=== PATIENT | female | born 1985 | race Caucasian/White ===

== ENCOUNTER 2016-12-19 15:56 | Emergency (ER) | payer MEDICAID ==
[2016-12-19] MEDS ORDERED: TYLENOL PO ONE ×2 (16:41→23:18)
[2016-12-19 19:00] LABS: Hematocrit 36.2 % (30.3-42.9); Hemoglobin 11.8 gm/dl (10.1-14.3); Mean Corpuscular HGB Conc 33 % (30-34); Mean Corpuscular Volume 77 fl (79-97); Platelet Count 232 K/mm3 (140-440); Red Blood Count 4.72 M/mm3 (3.65-5.03); Red Cell Distribution Width 14.1 % (13.2-15.2); White Blood Count 15.4 K/mm3 (4.5-11.0)
[2016-12-19 19:06] LABS: Mean Corpuscular Hemoglobin 25 pg (28-32)
[2016-12-19 19:17] LABS: Anion Gap 22 mmol/L; Blood Urea Nitrogen 8 mg/dL (7-17); Calcium 8.3 mg/dL (8.4-10.2); Carbon Dioxide 19 mmol/L (22-30); Chloride 93.4 mmol/L (98-107); Glucose 118 mg/dL (65-100); Potassium 3.7 mmol/L (3.6-5.0); Sodium 131 mmol/L (137-145)
[2016-12-19 19:44] LABS: Bacteria,Urine 2+ /HPF (Negative); Bilirubin,Urine NEG (Negative); Blood,Urine MOD (Negative); Ketones,Urine TR mg/dL (Negative); Leukocyte Esterase,Urine LG (Negative); Nitrite,Urine NEG (Negative); Protein,Urine <15 mg/dL mg/dL (Negative); Urobilinogen,Urine < 2.0 mg/dL (<2.0)
--- NOTE | 2016-12-19 22:50 | Emergency Department Report ---
HPI - General Chief Complaint: Upper Respiratory Infection Time Seen by Provider: 12/19/16 22:42 - HPI HPI: Patient is 31-year-old female at 29 weeks gestation who presents to ED complaining of fever and congestion times 4-5 days. Patient states she is generalized bodyaches and fever for the past couple of days. Patient admits to coughing and congestion and sinus pressure. Patient admits good movement and denies vaginal bleeding, vaginal leaking. Patient admitted frequent urination. She denies nausea/vomiting/abdominal pain/shortness of breath/dizziness/blurred vision ED Past Medical Hx - Past Medical History Previous Medical History?: No Additional medical history: 2vaginal births - Surgical History Past Surgical History?: No - Social History Smoking Status: Never Smoker Substance Use Type: None - Medications Home Medications: Home Medications Medication Instructions Recorded Confirmed Last Taken Type Acetaminophen [Acetaminophen ER 650 mg PO Q8HR PRN #30 tablet.er 12/19/16 Unknown Rx TAB] Amoxicillin/K Clav Tab [Augmentin 1 tab PO Q12HR #14 tab 12/19/16 Unknown Rx 875 mg] guaiFENesin [Robitussin] 200 mg PO Q6HR #20 tablet 12/19/16 Unknown Rx ED Review of Systems ROS: Stated complaint: BODY PAIN Other details as noted in HPI Constitutional: denies: chills, fever Eyes: denies: eye pain, eye discharge, vision change ENT: congestion. denies: ear pain, throat pain, dental pain, hearing loss, epistaxis Respiratory: cough. denies: shortness of breath, wheezing Cardiovascular: denies: chest pain, palpitations Endocrine: no symptoms reported Gastrointestinal: denies: abdominal pain, nausea, vomiting, diarrhea, constipation, melena Genitourinary: frequency. denies: urgency, dysuria, hematuria, discharge, abnormal menses Musculoskeletal: denies: back pain, joint swelling, arthralgia Skin: denies: rash, lesions Neurological: denies: headache, weakness, numbness, paresthesias, confusion, abnormal gait Psychiatric: denies: anxiety, depression Hematological/Lymphatic: denies: easy bleeding, easy bruising Physical Exam - Physical Exam Vital Signs: Vital Signs 12/19/16 12/19/16 16:33 17:11 Temperature 102.1 F H Pulse Rate 122 H Respiratory 20 18 Rate Blood Pressure 109/74 O2 Sat by Pulse 122 H Oximetry Physical Exam: GENERAL: Alert and oriented x3, no apparent distress, Normal Gait, atraumatic. HEAD: Head is normocephalic and a-traumatic. EYES: Extra ocular muscles are intact. Pupils are equal, round, and reactive to light and accommodation. EARS: symetrical, atraumatic, non tender, ear canal clear and moderate cerumen, tympanic membrance non inflamed. gross auditory nml bilaterally. NOSE: Nose symetrical, Nontender,Nares appeared normal. Tenderness to palpation of the maxillary sinuses MOUTH:Mouth is well hydrated and without lesions. Tonsils nonerythematous or swollen, Uvula midline, Tongue not elevated. Mucous membranes are moist. Posterior pharynx clear, no exudate or lesions. Patent airways. NECK: Supple. Non edematous, No carotid bruits. No lymphadenopathy or thyromegaly. LUNGS: Symetrical with respiration, No wheezing, no rales or crackles, CTAB. HEART: S1, S2 present, regular rate and rhythm without murmur, no rubs, no gallops. ABDOMEN: Gravid uterus noted,Positive bowel sounds, soft, and non-distended. . Nontender to palpation on all Quadrants, NO CVA tenderness. EXTREMITIES/MUSCULOSKELETAL: No cyanosis, clubbing, rash, lesions or edema. Full ROM bilaterally. UE/LE Pulses 2+ bilaterally. NEUROLOGIC: No focal Deficit, Cranial nerves II through XII are grossly intact. No loss of sensation, SKIN: Warm and dry, No lesions, No ulceration or induration present. ED Course Vital Signs 12/19/16 12/19/16 16:33 17:11 Temperature 102.1 F H Pulse Rate 122 H Respiratory 20 18 Rate Blood Pressure 109/74 O2 Sat by Pulse 122 H Oximetry ED Medical Decision Making - Lab Data Result diagrams: 12/19/16 18:35 12/19/16 18:35 - Medical Decision Making 31-year-old female presents with sinusitis/urinary tract infection. ED course: Patient received 2 doses of Tylenol, 1 dose of Macrobid, Robitussin. Rapid influenza test negative for signs or A and B. Urinalysis, CBC, BMP ordered. Urinalysis positive for bacteria and leukorrhea. CBC shows leukocytosis Discussed findings with patient and . Discussed with patient and appropriate medication during . Discussed taking Tylenol every 6 hours for fever and pain. Discussed Robitussin as needed for cough. Discussed to keep appointment with [facility] on Wednesday. Discussed return to ED symptoms worsen. Patient also verbally states he understands and will comply and follow-up. Prior to discharge vital signs stable. Patient is in no acute respiratory distress. Critical care attestation.: If time is entered above; I have spent that time in minutes in the direct care of this critically ill patient, excluding procedure time. ED Disposition Clinical Impression: UTI (urinary tract infection) during , URI with cough and congestion Disposition: DISCHARGED TO HOME OR SELFCARE Is pt being admited?: No Does the pt Need Aspirin: No Condition: Stable Instructions: Upper Respiratory Infection (ED), Urinary Tract Infection in Women (ED) Additional Instructions: Follow-up with [facility]. Increase fluids Take medication as prescribed if Symptoms worsen return to ED Prescriptions: Acetaminophen [Acetaminophen ER TAB] 650 mg PO Q8HR PRN #30 tablet.er PRN Reason: Pain Amoxicillin/K Clav Tab [Augmentin 875 mg] 1 tab PO Q12HR #14 tab guaiFENesin [Robitussin] 200 mg PO Q6HR #20 tablet Referrals: RENAN WALLACE [Other] - 3-5 Days Forms: Work/School Release Form(ED) Time of Disposition: 23:44
[2016-12-19] MEDS ORDERED: ROBITUSSIN PO ONE (23:18)
[2016-12-19] MEDS ORDERED: MACROBID PO ONE (23:18)
[2016-12-20 00:30] VITALS: BP 100/64
== END 2016-12-20 00:30 | disposition home or self-care (01) ==
LOC: ED 15:56
DX: O23.33 Infections of other parts of urinary tract in pregnancy, third trimester (principal); O26.893 Other specified pregnancy related conditions, third trimester; Z3A.29 29 weeks gestation of pregnancy; J06.9 Acute upper respiratory infection, unspecified
CPT/HCPCS: 36415; 80048; 81001; 85027; 87400; 99283